=== PATIENT | female | born 1995 | race African-American/Black ===

== ENCOUNTER 2017-10-24 00:46 | Emergency (ER) | payer SELFPAY ==
[~2017-10-24] VITALS: Ht 167.6 cm; Wt 77.4 kg
[~2017-10-24 00:46] MED LIST: Z.0.NO CURRENT MEDS; ZOFR4TAB3 SL
[2017-10-24 00:52] VITALS: BP 139/64; PULSE 82; RESP 22; TEMP 98.7; O2SAT 100
[2017-10-24] MEDS ORDERED: IBUP-232 PO (01:04)
[2017-10-24] MEDS ORDERED: AMOX500C PO (01:04)
[2017-10-24] MEDS ORDERED: AMOX875T PO (01:41)
[2017-10-24] MEDS ORDERED: PERC5TAB12 PO (01:41)
--- NOTE | 2017-10-24 01:42 | PD ---
HPI Chief Complaint: ENT Complaint Time Seen by Provider: 01:32 Travel History International Travel<30 days: No Contact w/Intl Traveler<30days: No Traveled to known affect area: No History of Present Illness HPI The patient is a 22-year-old female that for one week has had tooth pain in tooth #16. Her pain is extended to the left ear. She denies any fever, nausea , vomiting or diarrhea. She is going to see a dentist. PFSH Past Medical History Immunizations Current: Yes ?: Not LMP: DEPO Social History Alcohol Use: Yes Tobacco Use: No Substance Use: No Allergies-Medications (Allergen,Severity, Reaction): Coded Allergies: No Known Allergies (Verified Adverse Reaction, Unknown, 10/24/17) Reported Meds & Prescriptions Reported Meds & Active Scripts Active Percocet (Oxycodone-Acetaminophen) 5-325 mg Tab 1 Tab PO Q4H PRN Amoxicillin 875 Mg Tab 875 Mg PO BID 10 Days Reported Amoxicillin 500 Mg Cap 500 Mg PO BID Ibuprofen 600 Mg Tab 600 Mg PO Q6H PRN Review of Systems Except as stated in HPI: all other systems reviewed are Neg Physical Exam Narrative GENERAL: Well-nourished, well-developed patient in slight apparent distress with her left dental pain. Her vital signs are normal. SKIN: Focused skin assessment warm/dry. HEAD: Normocephalic. EYES: No scleral icterus. No injection or drainage. NECK: Supple, trachea midline. No JVD or lymphadenopathy. CARDIOVASCULAR: Regular rate and rhythm without murmurs, gallops, or rubs. RESPIRATORY: Breath sounds equal bilaterally. No accessory muscle use. GASTROINTESTINAL: Abdomen soft, non-tender, nondistended. MUSCULOSKELETAL: No cyanosis, or edema. BACK: Nontender without obvious deformity. No CVA tenderness. ENT: The tympanic membranes are clear, the throat shows no erythema, exudate nor abscess present and the TMJ shows slight tenderness in the TMJ area. DENTAL: No loose or chipped teeth. No malocclusion. Tooth #16 is exquisitely tender but there is no drainable abscess associated with this tooth. Data Data Last Documented VS Vital Signs Date Time Temp Pulse Resp B/P (MAP) Pulse Ox O2 Delivery O2 Flow Rate FiO2 10/24/17 00:52 98.7 82 22 139/64 (89) 100 Orders Orders Amoxicillin (Trimox) (10/24/17 01:45) Oxycodone-Acetamin 7.5-325 Mg (Percocet (10/24/17 01:45) MDM Medical Decision Making Medical Screen Exam Complete: Yes Emergency Medical Condition: Yes Medical Record Reviewed: Yes Differential Diagnosis Dental infection, ear pain, TMJ pain, drainable dental abscess Narrative Course The patient has a dental infection. She is to follow-up with a dentist. She is given amoxicillin 875 mg twice daily for 10 days with several refills. She does not have any drainable dental abscesses. Diagnosis Primary Impression: Dental infection Med/Other Pt SpecificInfo: Prescription(s) given Scripts Oxycodone-Acetaminophen (Percocet) 5-325 mg Tab 1 TAB PO Q4H Y for PAIN, #20 TAB 0 Refills Prov: Pro Laguna MD 10/24/17 Amoxicillin (Amoxicillin) 875 Mg Tab 875 MG PO BID for Infection for 10 Days, #20 TAB 0 Refills Prov: Pro Laguna MD 10/24/17 Disposition: DISCHARGE HOME Condition: Stable Pro Laguna MD Oct 24, 2017 01:41
[2017-10-24] MEDS ORDERED: oxyCODONE/ACETAMINOPHEN 7.5 MG/325 MG TAB PO ONE (01:45)
[2017-10-24] MEDS ORDERED: AMOXICILLIN 875 MG TAB PO ONE (01:45)
== END 2017-10-24 02:12 | disposition home or self-care (01) ==
LOC: PHED 00:46 → EDBD 00:46 → PHED 02:12
DX: K04.7 Periapical abscess without sinus (principal)
CPT/HCPCS: 99284